=== PATIENT | female | born 1985 | race Caucasian/White ===

== ENCOUNTER 2024-08-18 09:59 | Outpatient (CLI) | payer OTHER, SELFPAY ==
--- NOTE | 2024-08-18 11:30 | NEURO_ITS ---
Impression: # Complains of numbness of hands. Non-diabetic. ? # Mild evolving Carpal Tunnel Syndrome. ? # No ulnar neuropathy. ? # Normal needle/EMG exam without any neurogenic changes. ? # Clinical correlation recommended. Nerve Conduction Studies Anti Sensory Summary Table ?Stim Site NR Peak (ms) P-T Amp (?V) Site1 Site2 Delta-P (ms) Dist (cm) Darryl (m/s) Left Median Anti Sensory (2-3nd Digit) Wrist ? 3.9 42.3 Wrist 2-3nd Digit 3.9 14.0 36 Wrist ? 4.2 87.3 Wrist 2-3nd Digit 3.9 14.0 36 Right Median Anti Sensory (2-3nd Digit) Wrist ? 3.1 44.6 Wrist 2-3nd Digit 3.1 14.0 45 Wrist ? 3.3 54.7 Wrist 2-3nd Digit 3.1 14.0 45 Left Radial Anti Sensory (Base 1st Digit) Wrist ? 1.7 34.7 Wrist Base 1st Digit 1.7 0.0 Right Radial Anti Sensory (Base 1st Digit) Wrist ? 1.8 37.6 Wrist Base 1st Digit 1.8 0.0 Left Ulnar Anti Sensory (5th Digit) Wrist ? 2.3 77.9 Wrist 5th Digit 2.3 14.0 61 Right Ulnar Anti Sensory (5th Digit) Wrist ? 2.7 66.6 Wrist 5th Digit 2.7 14.0 52 Motor Summary Table ?Stim Site NR Onset (ms) O-P Amp (mV) Site1 Site2 Delta-0 (ms) Dist (cm) Darryl (m/s) Left Median Motor (Abd Poll Brev) Wrist ? 3.9 6.2 Elbow Wrist 4.5 28.0 62 Elbow ? 8.4 9.4 Right Median Motor (Abd Poll Brev) Wrist ? 3.4 5.6 Elbow Wrist 4.1 25.0 61 Elbow ? 7.5 8.7 Left Ulnar Motor (Abd Dig Minimi) Wrist ? 2.4 5.9 A Elbow Wrist 4.3 26.0 60 A Elbow ? 6.7 4.3 Right Ulnar Motor (Abd Dig Minimi) Wrist ? 2.4 8.8 A Elbow Wrist 4.3 26.0 60 A Elbow ? 6.7 8.2 F Wave Studies ?NR F-Lat (ms) L-R F-Lat (ms) Left Median (Mrkrs) (Abd Poll Brev) ? 24.92 0.94 Right Median (Mrkrs) (Abd Poll Brev) ? 23.98 0.94 Left Ulnar (Mrkrs) (Abd Dig Min) ? 24.61 0.53 Right Ulnar (Mrkrs) (Abd Dig Min) ? 24.08 0.53 EMG ?Side Muscle Nerve Root Ins Act Fibs Amp Dur Recrt Comment Right 1stDorInt Ulnar C8-T1 Nml Nml Nml Nml Nml Right Ext Indicis Radial (Post Int) C7-8 Nml Nml Nml Nml Nml Right Ext Digitorum Radial (Post Int) C7-8 Nml Nml Nml Nml Nml Right BrachioRad Radial C5-6 Nml Nml Nml Nml Nml Right PronatorTeres Median C6-7 Nml Nml Nml Nml Nml Right Abd Poll Brev Median C8-T1 Nml Nml Nml Nml Nml Right ABD Dig Min Ulnar C8-T1 Nml Nml Nml Nml Nml Left 1stDorInt Ulnar C8-T1 Nml Nml Nml Nml Nml Left Ext Indicis Radial (Post Int) C7-8 Nml Nml Nml Nml Nml Left Ext Digitorum Radial (Post Int) C7-8 Nml Nml Nml Nml Nml Left BrachioRad Radial C5-6 Nml Nml Nml Nml Nml Left PronatorTeres Median C6-7 Nml Nml Nml Nml Nml Left Abd Poll Brev Median C8-T1 Nml Nml Nml Nml Nml Left ABD Dig Min Ulnar C8-T1 Nml Nml Nml Nml Nml Right FlexPolLong Median (Ant Int) C7-8 Nml Nml Nml Nml Nml Right Abd Poll Long Radial (Post Int) C7-8 Nml Nml Nml Nml Nml Left FlexPolLong Median (Ant Int) C7-8 Nml Nml Nml Nml Nml Left Abd Poll Long Radial (Post Int) C7-8 Nml Nml Nml Nml Nml MTDD
== END 2024-08-18 10:00 | disposition home or self-care (01) ==
LOC: ANHNEURO 10:01
PROVIDERS: Visit Provider Physician Assistant
DX: G56.03 Carpal tunnel syndrome, bilateral upper limbs (principal)
CPT/HCPCS: 95886; 95911